=== PATIENT | male | born 2000 ===

== ENCOUNTER 2024-05-16 16:28 | Outpatient (REF) | payer OTHER, SELFPAY ==
[2024-05-16 21:55] LABS: HCT 48.7 % (40.0-50.0); HGB 16.2 g/dL (13.5-17.5); MCH 29.8 pg (27.0-33.0); MCHC 33.3 % (32.0-36.0); MCV 90 fL (80-95); Platelet Count 218 10^3/uL (130-400); RBC 5.43 10^6/uL (4.36-5.78); RDW 11.4 % (11.8-14.1); RDW-SD 37.1 fL
[2024-05-16 22:24] LABS: ALT 16 U/L (16-63); AST 20 U/L (15-37); Albumin 4.3 g/dL (3.4-5.0); Alkaline Phosphatase 107 U/L (46-116); Anion Gap 8.2 mmol/L (3-11); BUN 25 mg/dL (7-18); Bilirubin, Total 0.35 mg/dL (0.2-1.0); CO2 28.8 mmol/L (21.0-32.0); CREATININE 1.1 mg/dL (0.70-1.30); Calcium 9.4 mg/dL (8.5-10.1); Chloride 105 mmol/L (98-107); Estimated GFR 96.74 (mL/min/1.73m2); Glucose 103 mg/dL (74-106); Potassium 3.9 mmol/L (3.5-5.1); Sodium 142 mmol/L (136-145); TSH 4.16 uIU/mL (0.36-3.74); Total Protein 8.3 g/dL (6.4-8.2)
[2024-05-17 13:26] LABS: FREE T4 0.94 ng/dL (0.76-1.46)
[2024-05-17 20:12] LABS: Prolactin 7.3 ng/mL (2.1-17.7)
[2024-05-17 20:45] LABS: Hepatitis C Ab w Rflx HCV PCR Negative (Negative)
[2024-05-18 10:36] LABS: Syphilis Serology (RPR) Negative (Negative)
[2024-05-18 12:17] LABS: Chlamydia Result Negative (Negative); GC Result Negative (Negative)
[2024-05-19 10:34] LABS: HIV-1/2 Ag & Ab Screen Negative (Negative)
== END 2024-05-16 16:29 | disposition home or self-care (01) ==
LOC: NCHCN 16:28
PROVIDERS: Visit Provider Family Medicine
DX: N64.52 Nipple discharge (principal); Z11.3 Encounter for screening for infections with a predominantly sexual mode of transmission
CPT/HCPCS: 80053; 85027; 86803; 87389; 87491; 87591; 84146; 84439; 84443; 86592